=== PATIENT | female | born 1990 | race Caucasian/White ===

== ENCOUNTER 2023-10-19 07:27 | Outpatient (REF) | payer BC, SELFPAY | END 2023-10-19 07:28 | disposition home or self-care (01) | LOC: LAB 07:27 | PROVIDERS: Visit Provider Obstetrics & Gynecology | DX: L91.8 Other hypertrophic disorders of the skin (principal) | CPT/HCPCS: 88305 ==

== ENCOUNTER 2023-10-19 20:28 | Outpatient (REF) | payer BC, SELFPAY ==
[2023-10-22 21:07] LABS: Age Gdln ACOG Testing Note (.); HPV Aptima Negative (Negative); IGP, Aptima HPV, rfx 16/18,45 Note (.)
== END 2023-10-19 20:29 | disposition home or self-care (01) ==
LOC: LAB 20:28
PROVIDERS: Visit Provider Obstetrics & Gynecology
DX: L91.8 Other hypertrophic disorders of the skin (principal); Z12.4 Encounter for screening for malignant neoplasm of cervix
CPT/HCPCS: 87624; 88305; G0145

== ENCOUNTER 2024-10-24 10:11 | Outpatient (OUT) | payer BC, SELFPAY ==
--- OUTSIDE RECORDS SUMMARY | 2024-10-24 10:32 | XMS_ITS | CCD ---
Author Organization [facility] Care Team Providers Care Electronic Drafter Name Role Phone JUAN CARLOSMEDHAT CAMRON Shalonda Referring Unavailable LATOSHA KENDRICK Primary Care Unavailable GUILLAUME, DR COBB Primary Care Unavailable RL LANE Admitting Unavailable RL LANE Attending Unavailable ROLLY TEJEDA Consulting Unavailable JASKARAN ESCOBAR Consulting Unavailable JOHN DO Consulting Unavailable RL LANE Consulting Unavailable JORGE SALGADO Consulting Unavailable CONSUELO, DR BRADSHAW Admitting Unavailable CONSUELO, DR BRADSHAW Attending Unavailable GUILLAUME, DR COBB Primary Care Unavailable CONSUELO, DR BRADSHAW Consulting Unavailable MD Familia Park Attending Provider [phone] JONAS Kendrick Primary Care Provider ANKIT Evans Attending Provider JONAS Kendrick Primary Care Provider Lauryn Evans Admitting Unavailable Lauryn Evans Attending Unavailable Latosha Kendrick Primary Care Unavailable Latosha Kendrick MD Primary Care Provider [phone] AUGUSTINE CORDERO Attending Unavailable ANGY CAMARILLO Attending Unavailable ANGY CAMARILLO Attending Unavailable Medications Current Medications Medication Drug Class(es) Dates Sig (Normalized) Sig (Original) Ethinyl Estradiol / Ferrous fumarate / Norethindrone (6 sources) Estrogen Start: 08-10-2024 End: 11-08-2024 norethindrone-ethiny l estradiol (Junel FE 12/12) 1-20 MG-MCG tablet Indications: Encounter for initial prescription of contraceptive pills Take 1 tablet by mouth Daily 90 tablet 08/10/2024 11/08/2024 Active Start: 05-30-2024 Norethindrone- E.Estradiol-Iron (Misael Fe 1/20 (28)) 1 mg-20 mcg (21)/75 mg (7) tablet Active 1 TAB PO Daily May 30, 2024 12:00am fluconazole 100 mg oral tablet (5 sources) Azole Antifungal Start: 09-26-2024 take 1 tablet by mouth once daily, then take 1 tablet by mouth every week fluconazole (Diflucan) 100 MG tablet Indications: Yeast infection Take 1 tablet (100 mg) by mouth Daily Then a second tab a week later. 2 tablet 09/26/2024 Active Start: 09-26-2024 take 1 tablet by hilario th once daily, then take 1 tablet by mouth every week fluconazole (Diflucan) 100 MG tablet Indications: Yeast infection Take 1 tablet (100 mg) by mouth Daily Then a second tab a week later. 2 tablet 09/26/2024 Active Start: 09-19-2024 End: 09-26-2024 take 1 tablet by mouth once, then take 1 tablet by mouth once fluconazole (Diflucan) 150 MG tablet Indications: Yeast infection Take 1 tablet (150 mg) by mouth 1 (one) time for 1 dose This is a 1 time dose, take single tablet by mouth. 1 tablet 1 09/19/2024 09/26/2024 Discontinued Pneumatic Walking Boot (2 sources) Start: 05-30-2024 Pneumatic Walk ing Boot Active 0 .Route 1 May 30, 2024 12:00am As directed Problems Active Problems Problem Classification Problem Date Documented Da te Episodic/Chronic Gastrointestinal hemorrhage (3 sources) Rectal hemorrhage; Translations: [Hemorrhage of anus and rectum] 03-08-2019 Episodic Immunizations and screening for infectious disease (1 source) Encounter for screening for human papillomavirus (HPV); Translations: [ENC SCREENING HUMAN PAPILLOMAVIRUS] Onset: 10-15-2022 Episodic Mycoses (2 sources) Mycosis; Translations: [Candidiasis, unspecified] 09-26-2024 Episodic Other gastrointestinal disorders (3 sources) Diarrhea; Translations: [Diarrhea, unspecified] 03-08-2019 Episodic Other injuries and conditions due to external causes (2 sources) Injury of right foot; Translations: [Unspecified injury of right foot, initial encounter] 05-30-2024 Episodic Other screening for suspected conditions (not mental disorders or infectious disease) (4 sources) Encounter for screening for malignant neoplasm of cervix; Translations: [ENC SCREENING MALIG NEOPLASM CERV] Onset: 10-13-2022 Episodic Superficial injury; contusion (4 sources) Contusion of right foot; Translations: [Contusion of right foot, initial encounter] 05-30-2024 Episodic Past or Other Problems Problem Classification Problem Date Documented Da te Episodic/Chronic E Codes: Natural/environment (1 source) Overexertion from prolonged static or awkward postures, initial encounter; Translations: [OVEREXERT PROLNG STAT/AWK PST INIT] Onset: 04-08-2022 Episodic Other injuries and conditions due to external causes (1 source) Unspecified injury of right foot, initial encounter; Translations: [Unspecified injury of right foot, initial encounter] Onset: 05-30-2024 Episodic Other non-traumatic joint disorders (3 sources) Pain in left ankle and joints of left foot; Translations: [PAIN IN LEFT ANKLE] Onset: 04-05-2022 Episodic Sprains and strains (1 source) Sprain of unspecified ligament of left ankle, initial encounter; Translations: [SPRAIN UNS LIGAMENT LT ANKLE INIT] Onset: 04-08-2022 Episodic Syncope (1 source) Syncope and collapse; Translations: [SYNCOPE AND COLLAPSE] Onset: 04-08-2022 Episodic Results Test Name Value Interpretation Reference Range Facil ity XR foot RT min 3V*on 024 XR foot RT min 3V* [facility] Main [place] [address] [place] [address] XRay Report Signed Patient: Aundrea Fatima MR#: [id number] 142 : 1990 Acct:[id number] Age/Sex: 34 / F ADM Date: 05/30/24 Loc: XDUCLY Room: Type: [facility] Attending Dr: Lauryn Evans APRN Copies to: Lauryn Evans APRN Ordering Provider: Lauryn Evans APRN Date of Service: 05/30/24 XR/XR foot RT min 3V*: S99.921A - Unspecified injury of right foot, initial enco... RIGHT FOOT - 3 views CLINICAL DATA: Patient kicked a pole yesterday has pain and bruising at the distal fourth and fifth toes. COMPARISON: None AP, lateral and oblique views were obtained. There is no evidence of fracture or dislocation. There are no significant soft tissue abnormalities. XR/XR foot RT min 3V* IMPRESSION: NO ACUTE BONY INJURY. Impression dictated by: Palmira Red M.D.05/30/2024 10:39 AM Dictation Location: [place] [address] Transcribed By: GARLAND 05/30/24 1039 Dictated By: Palmira Red MD 05/30/24 1038 Signed By: 05/30/[address] [facility] HCG ( test) IA.rapi d Ql (U)Ordered By: Familia [place] on 02-02-2023 HCG ( test) Ql (U) Negative [facility] PAP ACOG PANEL 2: 30 to 65on 10-22-2022 . . Normal [facility] Comment on above: Result Comment: Perf ormed at: WB Performed By: #### [id number] #### [facility] [address] [place] [address] [address] Joe Mccrary Age Gdln ACOG Testing [facility] Comment on above: Performed By: #### [id number] #### [facility] [address] [place] [address] [address] Joe Mccrary DIAGNOSIS: Comment [facility] Comment on above: Result Comment: NEGA TIVE FOR INTRAEPITHELIAL LESION OR MALIGNANCY. Performed at: WB Performed By: #### [id number] #### [facility] [address] [place] [address] [address] Joe Mccrary HPV Aptima QNSPAP [facility] Comment on above: Result Comment: Test not performed. Liquid based PAP vial contained insufficient specimen for molecular testing; likely a consequence of insufficient cellularity in original collection. This nucleic acid amplification test detects fourteen high-risk HPV types (16,18,31,33,35,39,45,51,52,56,58,59,66,68) without differentiation. Performed at: =G Performed By: #### [id number] #### [facility] [address] [address] [address] Joe Mccrary HPV Genotype Reflex Comment [facility] Comment on above: Result Comment: Crit eria not met, HPV Genotype not performed. Performed at: WB Performed By: #### [id number] #### [facility] [address] [place] [address] Dr. Joe Mccrary Methodology: Comment Normal [facility] Comment on above: Result Comment: This liquid based ThinPrep(R) pap test was screened with the use of an image guided system. Performed at: WB Performed By: #### [id number] #### [facility] [address] [place] [address] Dr. Joe Mccrary Note: Comment Normal [facility] Comment on above: Result Comment: The Pap smear is a screening test designed to aid in the detection of premalignant and malignant conditions of the uterine cervix. It is not a diagnostic procedure and should not be used as the sole means of detecting cervical cancer. Both false-positive and false-negative reports do occur. . Performed at: WB Performed By: #### [id number] #### [facility] [address] [place] [address] Dr. Joe Mccrary Performed by: Comment Normal [facility] Comment on above: Result Comment: Claudine Arenas Senior Storage Administrator (ASCP) Performed at: WB Performed By: #### [id number] #### [facility] [address] [place] [address] Dr. Joe Mccrary Specimen adequacy: Comment Normal [facility] Comment on above: Result Comment: Sati sfactory for evaluation. Endocervical and/or squamous metaplastic cells (endocervical component) are present. Performed at: WB Performed By: #### [id number] #### [facility] [address] [place] [address] Dr. Joe Mccrary CARDIAC DOUGLAS 3-6on 2 CK [Catalytic activity/Vol] 115 U/L Normal 26-192 [facility] Comment on above: Performed By: #### C MREP ####[facility] [address] [place] [address]Dr. Joe Mccrary CK.MB [Mass/Vol] 0.75 ng/mL Normal <=3.60 [facility] Comment on above: Performed By: #### C MREP ####[facility] [address] [place] [id number]. Joe Mccrary HSTROP 6.4 pg/mL Normal 4.0-51.3 [facility] Comment on above: Result Comment: CUT- OFF POINTS HAVE BEEN ESTABLISHED BASED ON THE FOURTH UNIVERSAL DEFINITIONS OF MYOCARDIAL INFARCTION. THE UPPER REFERENCE LIMIT (URL) OF TROPONIN, DEFINED THE 99TH PERCENTILE OF cTnI DISTRIBUTION IN A REFERENCE POPULATION, HAS BEEN CONFIRMED THE DECISION THRESHOLD FOR AL DIAGNOSIS. Performed By: #### C MREP ####[facility] [address] [place] [id number]. Joe Mccrary CARDIAC DOUGLAS ADMITon 022 CK [Catalytic activity/Vol] 135 U/L Normal 26-192 [facility] Comment on above: Performed By: #### C MADM #### [facility] [address] [place] [address] [address] Joe Mccrary CK.MB [Mass/Vol] 0.78 ng/mL Normal <=3.60 [facility] Comment on above: Performed By: #### C MADM #### [facility] [address] [place] [address] [address] Joe Mccrary HSTROP 5.9 pg/mL Normal 4.0-51.3 [facility] Comment on above: Result Comment: CUT- OFF POINTS HAVE BEEN ESTABLISHED BASED ON THE FOURTH UNIVERSAL DEFINITIONS OF MYOCARDIAL INFARCTION. THE UPPER REFERENCE LIMIT (URL) OF TROPONIN, DEFINED THE 99TH PERCENTILE OF cTnI DISTRIBUTION IN A REFERENCE POPULATION, HAS BEEN CONFIRMED THE DECISION THRESHOLD FOR AL DIAGNOSIS. Performed By: #### C MADM #### [facility] [address] [address] [address] Joe Mccrary ROXANNE 47 ng/mL Normal 9-82 [facility] Comment on above: Performed By: #### C MADM #### [facility] [address] [address] [address] Joe Mccrary CBC AUTO DIFFon 04-05-2022 BASO # 0.0 103/ul Normal 0.0-0.1 [facility] Comment on above: Performed By: #### C BC ####[facility] [address] [place] [id number]. Joe Mccrary Basophils/100 WBC (Bld) 0.2 % Normal 0.2-2.0 [facility] Comment on above: Performed By: #### C BC ####[facility] [address] [place], [place] [address]Dr. Joe Mccrary EO # 0.1 103/ul Normal 0.0-0.7 [facility] Comment on above: Performed By: #### C BC ####[facility] [address] [place], [place] [address]Dr. Joe Mccrary Eosinophils/100 WBC (Bld) 0.6 % Critically low 0.9-7.0 [facility] Comment on above: Performed By: #### C BC ####[facility] [address] [place], [place] [address]Dr. Joe Mccrary Erythrocyte distribution width (RBC) [Ratio] 12.8 % Normal 11.0-15.0 [facility] Comment on above: Performed By: #### C BC ####[facility] [address] [place], [place] [address]Dr. Joe Mccrary Hematocrit (Bld) [Volume fraction] 35.8 % Critically low 36.0-48.0 [facility] Comment on above: Performed By: #### C BC ####[facility] [address] [place], [place] [address]Dr. Joe Mccrary Hemoglobin (Bld) [Mass/Vol] 11.7 g/dL Critically low 12.0-16.0 [facility] Comment on above: Performed By: #### C BC ####[facility] [address] [place], [place] [address]Dr. Joe Mccrary IG # 0.02 10e3/ul Normal 0.00-0.03 [facility] Comment on above: Performed By: #### C BC ####[facility] [address] [place], [place] [address]Dr. Yanethoxana Mccrary IG % 0.2 % Normal 0.0-0.5 [facility] Comment on above: Performed By: #### C BC ####[facility] [address] [place] [id number]. Joe Hermann LYMPH # 2.6 103/ul Normal 1.2-3.8 [facility] Comment on above: Performed By: #### C BC ####[facility] [address] [place] [id number]. Joe Mccrary Lymphocytes/100 WBC (Bld) 25.3 % Normal 20.5-60.0 [facility] Comment on above: Performed By: #### C BC ####[facility] [address] [place] [id number]. Joe Mccrary MANUAL DIFF REQ NO Normal [facility] Comment on above: Performed By: #### C BC ####[facility] [address] [place] [id number]. Joe Mccrary MCH (RBC) [Entitic mass] 30.6 pg Normal 26.7-34.0 [facility] Comment on above: Performed By: #### C BC ####[facility] [address] [place] [id number]. Joe Hermann MCHC (RBC) [Mass/Vol] 32.7 g/dL Normal 29.9-35.2 [facility] Comment on above: Performed By: #### C BC ####[facility] [address] [place] [id number]. Joe Mccrary MCV (RBC) [Entitic vol] 93.7 fL Normal 81.0-99.0 [facility] Comment on above: Performed By: #### C BC ####[facility] [address] [place] [id number]. Joe Mccrary MONO # 0.7 103/ul Normal 0.3-0.8 [facility] Comment on above: Performed By: #### C BC ####[facility] [address] [place] [id number]. Joe Mccrary Monocytes/100 WBC (Bld) 6.7 % Normal 1.7-12.0 [facility] Comment on above: Performed By: #### C BC ####[facility] [address] [place] [id number]. Joe Mccrary NEUT # 7.0 103/ul Critically high 1.4-6.5 [facility] Comment on above: Performed By: #### C BC ####[facility] [address] [place] [id number]. Joe Mccrary Neutrophils/100 WBC (Bld) 67.0 % Normal 43.0-75.0 [facility] Comment on above: Performed By: #### C BC ####[facility] [address] [place] [address]Dr. Joe Mccrary Platelet mean volume (Bld) [Entitic vol] 10.4 fL Normal 9.5-13.5 [facility] Comment on above: Performed By: #### C BC ####[facility] [address] [place] [address]Dr. Joe Mccrary PLT 257 103/ul Normal 150-450 [facility] Comment on above: Performed By: #### C BC ####[facility] [address] [place] [id number]. Joe Mccrary RBC 3.82 106/ul Critically low 4.20-5.40 [facility] Comment on above: Performed By: #### C BC ####[facility] [address] [place] [id number]. Joe Mccarry WBC 10.4 103/ul Normal 4.0-11.0 [facility] Comment on above: Performed By: #### C BC ####[facility] [address] [place], [place] [address]Dr. Joe Mccrary CT HEAD WO CONon 04-05-2022 CT HEAD WO CON EXAM: CT HEAD WO CON COMPARISON: None available. CLINICAL INFORMATION: Headache. TECHNIQUE: Axial noncontrast images were obtained through the brain and reconstructed using brain and bone algorithms with sagittal and coronal reconstructions. Dose reduction techniques were achieved by using automated exposure control and/or adjustment of mA and/or kV according to patient size and/or use of iterative reconstruction technique. FINDINGS: BRAIN: No intracranial hemorrhage. No extra-axial collection. No mass or mass effect. No midline shift. Mcclelland-white matter differentiation is preserved. CSF: Ventricles and sulci appropriate for age. Basal cisterns are patent. ORBITS: Visualized orbital structures are unremarkable. SINUSES AND MASTOID AIR CELLS: Paranasal sinuses are clear. Mastoid air cells are clear. BONES: No acute osseous abnormality. SOFT TISSUES: Unremarkable. IMPRESSION: No acute intracranial abnormality. Electronically authenticated by: JASKARAN ECSOBAR Date: 2022-04-05 20:43 Normal [facility] D-DIMERon 04-05-2022 D-DIMER 0.30 mg/L FEU Normal <=0.59 [facility] Comment on above: Performed By: #### D DIM #### [facility] [address] [place] [address] Dr. Joe Mccrary D-DIMER COMMENTS SEE BELOW Normal [facility] Comment on above: Result Comment: Incr eases in D-Dimer concentration observed with thromboembolic events can be variable due to localization, size, and age of the thrombus. Therefore, a thromboembolic event cannot be diagnosed with certainty on the basis of the reference range. D-Dimers may also be elevated for a variety of disorders including: advanced age, , coronary disease, cancer, liver disease, infection, inflammation, hematoma, DIC, trauma, post-surgery, diabetes, thrombolytic or anticoagulant therapy, stress, and generalized hospitalization. Performed By: #### D DIM #### [facility] [address] [place] [address] Dr. Joe Mccrary ER URINE PROFILEon 2 Bilirubin Ql (U) Negative Normal NEGATIVE [facility] Comment on above: Performed By: #### E JESSICA VELAZQUEZ UMICRO #### [facility] [address] [place] [address] Dr. Joe Mccrary Clarity (U) CLEAR Normal CLEAR [facility] Comment on above: Performed By: #### E JESSICA VELAZQUEZ UMICRO #### [facility] [address] [place] [address] Dr. Joe Mccrary Color (U) LT. YELLOW Normal YELLOW [facility] Comment on above: Performed By: #### E RUR, PREGU, UMICRO #### [facility] [address] [address] [address] Joe PÉREZ A micrscopic examination will be performed if indicated. Normal [facility] Comment on above: Performed By: #### E RUR, PREGU, UMICRO #### [facility] [address] [address] [address] Joe Mccrary Glucose Ql (U) Negative Normal NEGATIVE [facility] Comment on above: Performed By: #### E RUR, PREGU, UMICRO #### [facility] [address] [address] [address] Joe Mccrary Hemoglobin Ql (U) SMALL Abnormal NEGATIVE [facility] Comment on above: Performed By: #### E RUR, PREGU, UMICRO #### [facility] [address] [address] [address] Joe Mccrary Ketones Ql (U) Negative Normal NEGATIVE [facility] Comment on above: Performed By: #### E RUR, PREGU, UMICRO #### [facility] [address] [address] [address] Joe Mccrary LEUKOCYTES Negative Normal NEGATIVE [facility] Comment on above: Performed By: #### E RUR, PREGU, UMICRO #### [facility] [address] [address] [address] Joe Mccrary Nitrite Ql (U) Negative Normal NEGATIVE [facility] Comment on above: Performed By: #### E RUR, PREGU, UMICRO #### [facility] [address] [address] [address] Joe Mccrary pH (U) 5.5 [pH] Normal 5-9 [facility] Comment on above: Performed By: #### E RUR, PREGU, UMICRO #### [facility] [address] [address] [address] Joe Mccrary SPEC GRAVITY <=1.005 Abnormal 1.005-<=1.025 [facility] Comment on above: Performed By: #### E RUR, PREGU, UMICRO #### [facility] [address] [place] [address] Dr. Joe Mccrary UA PROTEIN Negative Normal NEGATIVE/ TRACE [facility] Comment on above: Performed By: #### E JESSICA VELAZQUEZ, UMICRO #### [facility] [address] [place] [address] Dr. Joe Mccrary UR MICRO IND INDICATED Normal [facility] Comment on above: Performed By: #### E JESSICA VELAZQUEZ, UMICRO #### [facility] [address] [place] [address] Dr. Joe Mccrary Urobilinogen Qn (U) 0.2 {Afshin'U}/dL Normal 0.2 - 1.0 [facility] Comment on above: Performed By: #### JESSICA HULL, UMICRO #### [facility] [address] [place] [address] Dr. Joe Mccrary URon 04-05-2022 , QUAL Negative Normal NEGATIVE [facility] Comment on above: Performed By: #### JESSICA HULL, UMICRO #### [facility] [address] [place] [address] Dr. Joe Mccrary PROF 14(COMP METB)on 022 Albumin [Mass/Vol] 4.0 g/dL Normal 3.4-5.0 [facility] Comment on above: Performed By: #### C MP #### [facility] [address] [place] [address] Dr. Joe Mccrary Albumin/Globulin [Mass ratio] 1.1 {ratio} Normal [facility] Comment on above: Performed By: #### C MP #### [facility] [address] [place] [address] Dr. Joe Mccrary ALP [Catalytic activity/Vol] 83 U/L Normal 46-116 [facility] Comment on above: Performed By: #### C MP #### [facility] [address] [place] [address] Dr. Joe Mccrary ALT [Catalytic activity/Vol] 20 U/L Normal 14-59 [facility] Comment on above: Performed By: #### C MP #### [facility] [address] [address] [address] Joe Mccrary Anion gap [Moles/Vol] 10.9 mmol/L Normal [facility] Comment on above: Performed By: #### C MP #### [facility] [address] [address] [address] Joe Mccrary AST [Catalytic activity/Vol] 16 U/L Normal 15-37 [facility] Comment on above: Performed By: #### C MP #### [facility] [address] [address] [address] Joe Mccrary Bilirubin [Mass/Vol] 0.2 mg/dL Normal 0.2-1.0 [facility] Comment on above: Performed By: #### C MP #### [facility] [address] [address] [address] Joe Mccrary Calcium [Mass/Vol] 9.3 mg/dL Normal 8.5-10.1 [facility] Comment on above: Performed By: #### C MP #### [facility] [address] [address] [address] Joe Mccrary Chloride [Moles/Vol] 104 mmol/L Normal 98-107 [facility] Comment on above: Performed By: #### C MP #### [facility] [address] [address] [address] Joe Mccrary CO2 [Moles/Vol] 25.8 mmol/L Normal 21.0-32.0 [facility] Comment on above: Performed By: #### C MP #### [facility] [address] [place] [address] Dr[address] Joe Mccrary Creatinine [Mass/Vol] 1.00 mg/dL Normal 0.55-1.02 [facility] Comment on above: Performed By: #### C MP #### [facility] [address] [address] [address] Joe Mccrary EGFR-AF HONDURAN >60 Normal >=60 [facility] Comment on above: Performed By: #### C MP #### [facility] [address] [place] [address] Dr. Joe Mccrary EGFR-NON AF HONDURAN >60 Normal >=60 [facility] Comment on above: Performed By: #### C MP #### [facility] [address] [address] [address] Joe Mccrary Globulin (S) [Mass/Vol] 3.6 g/dL Normal [facility] Comment on above: Performed By: #### C MP #### [facility] [address] [address] [address] Joe Mccrary Glucose [Mass/Vol] 112 mg/dL Critically high 74-106 [facility] Comment on above: Performed By: #### C MP #### [facility] [address] [place] [address] Dr. Joe Mccrary Potassium [Moles/Vol] 3.7 mmol/L Normal 3.5-5.1 [facility] Comment on above: Performed By: #### C MP #### [facility] [address] [place] [address] Dr. Joe Mccrary Protein [Mass/Vol] 7.6 g/dL Normal 6.4-8.2 [facility] Comment on above: Performed By: #### C MP #### [facility] [address] [place] [address] Dr. Joe Mccrary Sodium [Moles/Vol] 137 mmol/L Normal 136-145 [facility] Comment on above: Performed By: #### C MP #### [facility] [address] [place] [address] Dr. Joe Mccrary Urea nitrogen [Mass/Vol] 15.0 mg/dL Normal 7.0-18.0 [facility] Comment on above: Performed By: #### C MP #### [facility] [address] [place] [address] Dr. Joe Mccrary Urea nitrogen/Creatinin e [Mass ratio] 15.0 mg/mg Normal [facility] Comment on above: Performed By: #### C MP #### [facility] [address] [place] [address] Dr. Joe Mccrary URINE MICROSCOPIC ONLYon 05- 14-2022 BACTERIA NONE SEEN Normal NONE SEEN [facility] Comment on above: Performed By: #### E RUR, PREGU, UMICRO #### [facility] [address] [address] [address] Joe Mccrary Bacteria identified Cx Nom (U) NOT INDICATED Normal [facility] Comment on above: Performed By: #### E RUR, PREGU, UMICRO #### [facility] [address] [address] [address] Joe Mccrary CAST NONE SEEN Normal NONE SEEN [facility] Comment on above: Performed By: #### E RUR, PREGU, UMICRO #### [facility] [address] [place] [address] Dr. Joe Mccrary Crystals LM Nom (Urine sed) NONE SEEN Normal NONE SEEN [facility] Comment on above: Performed By: #### E RUR, PREGU, UMICRO #### [facility] [address] [place] [address] Dr. Joe Mccrary Epithelial cells LM Ql (Urine sed) RARE Normal NONE SEEN /RARE [facility] Comment on above: Performed By: #### Aruna RUR PREGU, UMICRO #### [facility] [address] [address] [address] Joe Mccrary MUCOUS NONE SEEN Normal NONE SEEN [facility] Comment on above: Performed By: #### Aruna RUR, PREGU, UMICRO #### [facility] [address] [place] [address] Dr. Joe Mccrary RBC 0-2 Normal 0-2 [facility] Comment on above: Performed By: #### E RUR, PREGU, UMICRO #### [facility] [address] [place] [address] Dr. Joe Mccrary WBC 0-2 Abnormal NONE SEEN [facility] Comment on above: Performed By: #### E RUR, PREGU, UMICRO #### [facility] [address] [place] [address] Dr. Joe Mccrary XR ANKLE LT MIN 3 Von 2021 XR ANKLE LT MIN 3 V EXAM: XR ANKLE LT MIN 3 V HISTORY: Pain COMPARISON: None. TECHNIQUE: Frontal, lateral, oblique views of the left ankle. FINDINGS: Mineralization: Within normal limits. Bones: No acute fractures or dislocations. Ankle mortise intact. Joints: Normal joint spacing. No effusion. Soft Tissues: Swelling about the anterior tibiotalar articulation. IMPRESSION: No acute osseous abnormality. Electronically authenticated by: JORGE SALGADO Date: 2022-04-05 19:53 Normal [facility] Vital Signs Date Time Vital Sign Value Performing Clinician Facility 09-26-2024 10:47-0500 Body height 157.5 cm Angy Marlin PA Work Phone: [facility] 09-26-2024 10:47-0500 Body mass index (BMI) [Ratio] 29.45 kg/m2 Angy Marlin PA Work Phone: [facility] 09-26-2024 10:47-0500 Body weight 73.03 kg Angy Marlin PA Work Phone: [facility] 09-26-2024 10:47-0500 Diastolic blood pressure 82 mm[Hg] Angy Marlin PA Work Phone: [facility] 09-26-2024 10:47-0500 Systolic blood pressure 116 mm[Hg] Angy Alamo PA Work Phone: [facility] 05-30-2024 09:46-0400 Body height 160.02 cm PA-C Latosha Pascual Work Phone: [facility] 05-30-2024 09:46-0400 Body mass index (BMI) [Ratio] 29.7 kg/m2 PA-C Latosha Pascual Work Phone: [facility] 05-30-2024 09:46-0400 Body temperature 100 [degF] PA-C Latosha Pascual Work Phone: [facility] 05-30-2024 09:46-0400 Body weight 76.2 kg PA-C Latosha Pascual Work Phone: [facility] 05-30-2024 09:46-0400 Heart rate 59 /min PA-C Latosha Pascual Work Phone: [facility] 05-30-2024 09:46-0400 Respiratory rate 18 /min PA-C Latosha Pascual Work Phone: [facility] 05-30-2024 09:46-0400 SaO2% (BldA) [Mass fraction] 99 % PA-C Latosha Pascual Work Phone: [facility] 02-02-2023 10:00-0400 Diastolic blood pressure 77 mm[Hg] PA-C Latosha Pascual Work Phone: [facility] 02-02-2023 10:00-0400 Heart rate 65 /min PA-C Latosha Pascual Work Phone: [facility] 02-02-2023 10:00-0400 Respiratory rate 16 /min PA-C Latosha Pascual Work Phone: [facility] 02-02-2023 10:00-0400 SaO2% (BldA) [Mass fraction] 100 % PA-C Latosha Pasucal Work Phone: [facility] 02-02-2023 10:00-0400 Systolic blood pressure 112 mm[Hg] PA-C Latohsa Pascual Work Phone: [facility] 02-02-2023 06:47-0400 Body height 157.48 cm PA-C Latosha Pascual Work Phone: [facility] 02-02-2023 06:47-0400 Body temperature 98 [degF] PA-C Latosha Pascual Work Phone: [facility] 02-02-2023 06:47-0400 Body weight 73.93 kg PA-C Latosha Pascual Work Phone: [facility] Encounters Encounter Date Encounter Type Care Provider Facility Start: 10-24-2024 End: 10-24-2024 Bamboo flowsheet Augustine Consuelo DO Work Phone: [facility] Start: 10-24-2024 End: 10-24-2024 Bamboo flowsheet Augustine Cordero DO Work Phone: [facility] Start: 09-26-2024 End: 09-26-2024 Bamboo flowsheet Angy Camarillo PA Work Phone: [facility] Start: 09-26-2024 End: 09-26-2024 Bamboo flowsheet Angy Camarillo PA Work Phone: [facility] Start: 09-26-2024 End: 09-26-2024 Office outpatient visit 15 minutes Angy Camarillo PA Work Phone: [facility] Comment on above: Yeast infection Start: 09-26-2024 End: 09-26-2024 ambulatory ANGY CAMARILLO Not Available Start: 06-29-2024 End: 06-29-2024 ambulatory ANGY CAMARILLO Not Available Start: 05-30-2024 End: 05-30-2024 ambulatory PA-C Latosha Pascual Work Phone: [facility] Work Phone: Start: 05-30-2024 End: 05-30-2024 Patient encounter procedure PA-C Latosha Pascual Work Phone: [facility] Work Phone: Start: 10-19-2023 End: 10-19-2023 ambulatory AUGUSTNIE CORDERO Not Available Start: 02-02-2023 End: 02-02-2023 Admission to same day surgery center PA-C Latosha Pascual Work Phone: [facility] Work Phone: Start: 02-02-2023 End: 02-02-2023 ambulatory PA-C Latosha Pascual Work Phone: [facility] Work Phone: Start: 10-13-2022 End: 10-13-[address] AUGUSTINE CORDERO Facility: Start: 04-05-2022 End: 04-06-[address] DOCTOR GALAVIZ Facility:[facility] Start: 11-18-2019 End: 11-19-2019 [facility] Procedures Date Procedure Procedure Detail Performing Clinician Start: 05-30-2024 X-ray of right foot PA- C Latosha Pascual Work Phone: Start: 02-02-2023 Colonoscopy PA-C Latosha Pascual Work Phone: Start: 10-13-2022 Microscopic observat ion [Identifier] in Cervix by Cyto stain Angy IRCHARDSON Work Phone: Plan of Treatment Date Care Activity Detail Author Start: 10-13-2027 Screening for malign ant neoplasm of cervix [facility] Start: 10-24-2024 End: 10-24-2024 Patient encounter procedure [facility] Comment on above: Arrived Start: 09-26-2024 End: 09-26-2024 Patient encounter procedure 09/26/2024 10:30 AM EST Office Visit [facility] [address] [place] [id number] Angy Camarillo PA [address] [place], [place] [address] Arrived [facility] Comment on above: Arrived Start: 07-24-2024 Influenza vaccination Influenza Vacc ine (#1) [facility] Start: 02-02-2023 [facility] Patient Education Ulcerative Col itis (DC) [facility] Work Phone: Immunizations Immunization Date Immunization Notes Care Provider Fa cility 09-04-2023 influenza virus vacc ine, unspecified formulation Angy RICHARDSON Work Phone: [facility] Payers Date Payer Category Payer Self-pay [id number] 2020 [facility] BCBS [id number] 1990 Unknown [id number] 1990 Unknown [id number] 1990 Unknown [id number] 1990 Unknown [id number] 1990 Unknown [id number] 1959 Unknown [id number] [employer] ( and others) [facility] [id number] Unknown [id number] Social History Date Type Detail Facility Start: 02-02-2023 End: 06-29-2024 Tobacco smoking status NHIS Never smoked tobacco (finding) [facility] Start: 1990 Sex Assigned At Female F [facility] Start: 06-29-2024 Tobacco use and exposure Smokeless tobacco non-user [facility] Start: 06-29-2024 End: 09-26-2024 Alcoholic beverage intake Ex-drinker (finding) [facility] Start: 06-29-2024 History of Social function [facility] Start: 06-29-2024 Tobacco use panel [facility] Start: 06-29-2024 Alcohol Comment Rarely consume [facility] Start: 1990 Sex assigned at Not on file [facility] Goals Date Patient Goal Desired Activity /State History of Present illness Narrative 09-26-2024 DEBRA Esteban - 09/26/2024 10:30 AM EST Note Date & Type Note Facility 09-26-2024 History of Presen t illness Narrative Reason for Appointment: Patient ID: Aundrea Fatima is a 34 y.o. female who presents for Contraception Patient presents today to discuss control and recurring yeast infections MEDICATIONS Current Outpatient Medications Medication Instructions fluconazole (DIFLUCAN) 100 mg, Oral, Daily, Then a second tab a week later. norethindrone-ethinyl estradiol (12/12) 1-20 MG-MCG tablet 1 tablet, Oral, Daily ALLERGIES No Known Allergies PROBLEMS Active Ambulatory Problems Diagnosis Date Noted No Active Ambulatory Problems Resolved Ambulatory Problems Diagnosis Date Noted No Resolved Ambulatory Problems Past Medical History: Diagnosis Date Abnormal uterine bleeding Increased severity of headaches Menorrhagia HISTORY PAST MEDICAL HISTORY SOCIAL HISTORY Past Medical History: Diagnosis Date Abnormal uterine bleeding Increased severity of headaches Menorrhagia Social History Tobacco Use Smoking status: Never Smokeless tobacco: Never Substance Use Topics Alcohol use: Not Currently Comment: Rarely consume Drug use: Never FAMILY HISTORY No family history on file. SURGICAL HISTORY Past Surgical History: Procedure Laterality Date SECTION, LOW TRANSVERSE REVIEW OF SYSTEMS Review of Systems: Review of Systems Constitutional: Negative. HENT: Negative. Eyes: Negative. Respiratory: Negative. Cardiovascular: Negative. Gastrointestinal: Negative. Genitourinary: Negative. Musculoskeletal: Negative. Skin: Negative. Neurological: Negative. All other systems reviewed and are negative. Hematological: Negative. Endocrine: Negative. Allergic/Immunologic: Negative. OBJECTIVE Objective: Physical Exam Constitutional: Appearance: Normal appearance. She is normal weight. HENT: Head: Normocephalic. Cardiovascular: Rate and Rhythm: Normal rate. Pulses: Normal pulses. Pulmonary: Effort: Pulmonary effort is normal. Breath sounds: Normal breath sounds. Abdominal: Palpations: Abdomen is soft. Musculoskeletal: General: Normal range of motion. Neurological: General: No focal deficit present. Mental Status: She is alert and oriented to person, place, and time. Psychiatric: Mood and Affect: Mood normal. Behavior: Behavior normal. Thought Content: Thought content normal. Judgment: Judgment normal. Vitals and nursing note reviewed. Vitals: Estimated body mass index is 29.45 kg/m as calculated from the following: Height as of this encounter: 5' 2 . Weight as of this encounter: 161 lb. BP: 116/82 No LMP recorded. (Menstrual status: Oral Contraception). ASSESSMENT & PLAN ICD-10-CM 1. Yeast infection B37.9 fluconazole (Diflucan) 100 MG tablet Patient states she has had increased yeast infections, she is debating on changing her control. We discussed use of soaps and changing to dove unscented. She has also started probiotic with yogurt as well. Pt declined cultures at this time but will do if this round of diflucan does not help. Pt also has 2 months of current contraception but discussed calling in - for her in future if she decides to change. Previously she had heavy bleeding with cramping but current medication has helped and now only has spotting. Documented by Fidelia Sher on behalf of: DEBRA Esteban documented in this encounter [facility] Healthcare Procedure note 02-02-2023 Note Date & Type Note Facility 02-02-2023 Procedure note [facility] Clinical Note 04-05-2022 Note Date & Type Note Facility 04-05-2022 Note PROCEDURE: XR CHEST 1 V, 04/05/2022 6:52 PM EDT CLINICAL INDICATIONS: Dizziness COMPARISON: None TECHNIQUE: Upright AP portable chest 1916 hours FINDINGS: Heart and mediastinum are normal. Acute consolidation, pleural effusion, or pneumothorax is not demonstrated. No acute osseous abnormality is seen. Regional soft tissues are unremarkable. IMPRESSION: 1. No acute cardiopulmonary pathology Electronically authenticated by: JOHN DO Date: 2022-04-05 20:04 [facility] Evaluation note Note Date & Type Note Facility Evaluation note No assessment information availa [facility] Work Phone: Evaluation note Note Date & Type Note Facility Evaluation note Diagnosis Onset Date Contusion of right foot including toes acute [facility] Work Phone: Evaluation note Note Date & Type Note Facility Evaluation note Diagnosis Yeast infection documented in this encounter [facility] Healthcare History and physical note Note Date & Type Note Facility History and physical note Note Date/Time February 02, 2023 9:1 4am [facility] [address] [place] [address] Gastroenterology H&P Signed Patient: Aundrea Fatima MR#: [id number] : 1990 Acct:[id number] Age/Sex: 32 / F Adm Date: 3 Loc: Room: Type: [facility] Attending Dr: Familia Park MD Copies to: Familia Park MD [facility] Pascual PAC~ Date of Service: 02/02/2023 HISTORY & PHYSICAL: Patient's history with special attention to the cardiovascular, pulmonary systems and the current problem was reviewed with the patient immediately prior to the procedure. Present medications and doses reviewed in the EMR. Allergies and pertinent laboratory tests were also reviewedat this time in the EMR. The physical examination, as below, was then performed. Indication, assessment and HPI: 32-year-old female here for colonoscopy for evaluation of rectal bleeding and abdominal pain Family history of GI malignancy? No PHYSICAL EXAMINATION Mouth and Pharynx : Moist mucus membranes, normal dentition Cardiac: Regular rate, regular rhythm Pulmonary: Clear to auscultation bilaterally, no wheezing Neurological: Alert and oriented x3, no focal deficits noted Abdomen: Abdomen soft, non-tender REVIEW OF SYSTEMS Constitutional: Denies malaise, fevers Cardiovascular: Denies chest pain, palpitations Respiratory: Denies shortness of breath, wheezing Gastrointestinal: Per HPI Genitourinary: Denies dysuria, polyuria Musculoskeletal: Denies joint swelling, joint stiffness Neurological: Denies numbness, tingling Integumentary: Denies rashes, skin lesions Endocrine: Denies fatigue, weight loss Written informed consent obtained from the patient. Risks (including but not limited to perforation, infection, bloating, bleeding, need for emergent surgeryand loss of life), benefits and alternatives explained and questions answered. The patient verbalized understanding. Based on history patient is an appropriate candidate for the procedure. Familia Park M.D. Documented By: Familia Park MD 02/02/23913 Signed By: <Electronically signed by Familia Park MD> 02/02/23913 [facility] Work Phone: Hospital Discharge instructions Note Date & Type Note Facility Hospital Discharge instructions Additional Instructions DISCHARGE INSTRUCTIONS FOR COLONOSCOPY WHAT TO EXPECT: - You may feel full, gassy or cramping after your procedure. In some cases, this may be from a few hours to a day. Walking may help relieve the discomfort. - You should begin to recover from anesthesia within 1 hour of the procedure, however may feel groggy for the next 24 hours. DO's AND DON'Ts: - Call your doctor right away if you have a hard abdomen, severe pain, are passing lots of bright red blood or clots. - Call your doctor if you develop any rashes, hives or difficulty breathing. - Let your doctor know if you have not had a bowel movement by 3 days after your procedure. - If you take 81 mg aspirin for your heart it is safe to resume this medication. - If you take other blood thinner medications your doctor will instruct you when these can safely be resumed. - Do NOT drive for 24 hours. - Do NOT operate machinery such as power tools, lawn mowers, snow blowers, sewing machines, etc. for 24 hours. - Avoid alcoholic beverages and drugs for allergies, nerves, or sleep. - Do NOT stay alone. Do NOT leave your child unattended. - Do NOT make important personal or business decisions or sign any legal documents. - Eat solid foods and drink liquids in smaller amounts than usual until normal appetite returns. If you should experience an upset stomach, liquids high in sugar content (soda, Herve-Aid, non-acid juices) are recommended. - You can resume normal activities tomorrow. FOLLOW UP & RECOMMENDATIONS: -Flexible sigmoidoscopy in 6 weeks -We will start oral mesalamine and Rowasa enema -Follow up pathology -Follow up in the office after 2 months -Follow up with PCP. -Office number [phone]. [facility] Work Phone: Summary Purpose Family History Relationship Condition Age at Onset Recorded Date/T rick father Coronary artery disease Unknown Relationship Condition Age at Onset Recorded Date/T rick father Coronary artery disease Unknown father Heart disease Unknown Unknown Advance Directives Advance Directive Response Recorded Date/ Time Advance Directives No March 03, 2 019 2:26pm Chief Complaint and Reason for Visit Chief Complaint Diverticulitis Chief Complaint right toe/foot pain w injury K29.188C - Unspecified injury of right foot, initi Reason for Visit Contusion of right f oot including toes Additional Source Comments INFORMATION SOURCE (unrecogn ized section and content) DATE CREATED AUTHOR 11/19/2019 [facility] DATE CREATED AUTHOR AUTHOR'S ORGANIZ ATION 10/23/2022 [facility] DATE CREATED AUTHOR AUTHOR'S ORGANIZ ATION 09/12/2024 [facility] DATE CREATED AUTHOR AUTHOR'S ORGANIZ ATION 09/27/2024 [facility] EPIC Care Teams (unrecognized sec tion and content) Team Status: Active Member Role Status Dates Latosha Kendrick PA-C Primary Care Provider Active Team Status: Inactive Member Role Status Dates Familia Park MD Attending Provider Active Latosha Kendrick PA-C Primary Care Provider Active Team Status: Inactive Member Role Status Dates Latosha Kendrick PA-C Primary Care Provider Active Start: May 30, 2024 End: May 30, 2024 Lauryn Evans APRN Attending Provider Active S tart: May 30, 2024 End: May 30, 2024 Team Status: Active Member Role Status Dates Lauryn Evans APRN Attending Provider Active S tart: May 30, 2024 Latosha Kendrick PA-C Primary Care Provider Active Start: May 30, 2024 Team Status: Inactive Member Role Status Dates Lauryn Evans APRN Attending Provider Active S tart: May 30, 2024 End: May 30, 2024 Latosha Kendrick PA-C Primary Care Provider Active Start: May 30, 2024 End: May 30, 2024 Electronic Drafter Relationship Specialty Start Date End Date Latosha Kendrick MD [address] [place] [address] PCP - General Physician [employer] 10/19/23 Electronic Drafter Relationship Specialty Start Date End Date Latosha Kendrick MD [address] [place], [place] [id number] PCP - General Physician [employer] 10/19/23 Electronic Drafter Relationship Specialty Start Date End Date Latosha Kendrick MD [address] [place] [id number] PCP - General Physician [employer] 10/19/23 Goals (unrecognized section and content) Goals may be documented in a n alternate sectionGoals may be documented in an alternate section Reason for Visit (unrecogniz ed section and content) Reason Comments Contraception FOR RECORDS PERTAINING TO PATIENTS WHO ARE OR HAVE BEEN ENROLLED IN A CHEMICAL DEPENDENCY/SUBSTANCEABUSE PROGRAM, SOME INFORMATION MAY BE OMITTED. This clinical summary was aggregated from multiple sources. Caution should be exercised in using it in the provision of clinical care. This summary normalizes information from multiple sources, and as a consequence, information in this document may materially change the coding, format and clinical context of patient data. In addition, data may be omitted in some cases. CLINICAL DECISIONS SHOULD BE BASED ON THE PRIMARY CLINICAL RECORDS. [employer] [facility]. provides no warranty or guarantee of the accuracy or completeness of information in this document.
[2024-10-25 05:07] LABS: HIV Ab/p24 Ag Screen Non Reactive (Non Reactive)
[2024-10-25 08:23] LABS: HBsAg Screen Negative (Negative)
[2024-10-25 12:09] LABS: Rapid Plasma Reagin, Quant Non Reactive titer (NonRea<1:1)
== END 2024-10-24 10:12 | disposition home or self-care (01) ==
LOC: LAB 10:14
PROVIDERS: Visit Provider Obstetrics & Gynecology
DX: Z01.419 Encounter for gynecological examination (general) (routine) without abnormal findings (principal); Z20.2 Contact with and (suspected) exposure to infections with a predominantly sexual mode of transmission
CPT/HCPCS: 36415; 86592; 87340; 87389; 87624; 88175

== ENCOUNTER 2024-10-24 20:33 | Outpatient (REF) | payer BC, SELFPAY ==
--- OUTSIDE RECORDS SUMMARY | 2024-10-24 20:36 | XMS_ITS | CCD ---
Author Organization [facility] Care Team Providers Care Laundry Washer Name Role Phone JUAN CARLOSMEDHAT CAMRON Shalonda [...] Consulting Unavailable MD Familia Park Attending Provider [phone] JONAS Kendrick Primary Care Provider ANKIT Evans Attending Provider JONAS Kendrick Primary Care Provider Lauryn Evans Admitting Unavailable Lauryn Evans Attending Unavailable Latosha Kendrick Primary Care Unavailable Latosha Kendrick MD Primary Care Provider [phone] AUGUSTINE CORDERO Attending Unavailable ANGY CAMARILLO Attending [...] 3V*on 024 XR foot RT min 3V* [facility] [place] [address] [place] [address] XRay Report Signed Patient: Aundrea Fatima MR#: [id number] : 1990 Acct:[id number] Age/Sex: 34 / F ADM Date: 05/30/24 Loc: XDUCLY Room: Type: [facility] Attending Dr: Lauryn Evans APRN Copies to: [...] Palmira Red M.D.05/30/2024 10:39 AM Dictation Location: [place] [address] Transcribed By: GARLAND 05/30/24 1039 Dictated By: Palmira Red MD 05/30/24 1038 Signed By: 05/30/24 1039 Normal [facility] HCG ( test) IA.rapi d Ql (U)Ordered By: Familia Park on 02-02-2023 HCG ( test) Ql (U) Negative [facility] PAP ACOG PANEL 2: 30 to 65on 10-22-2022 . . Normal [facility] Comment on above: Result Comment: Perf ormed at: WB Performed By: #### [id number] #### [facility] [address] [address] [address] Joe Mccrary Age Gdln ACOG Testing [facility] Comment on above: Performed By: #### [id number] #### [facility] [address] [address] [address] Joe Mccrary DIAGNOSIS: Comment [facility] Comment on above: Result Comment: NEGA TIVE FOR INTRAEPITHELIAL LESION OR MALIGNANCY. Performed at: WB Performed By: #### [id number] #### [facility] [address] [address] [address] Joe Mccrary HPV Aptima QNSPAP [facility] Comment on above: Result Comment: Test not performed. Liquid based PAP vial contained insufficient specimen for molecular testing; likely a consequence of insufficient cellularity in original collection. This nucleic acid amplification test detects fourteen high-risk HPV types (16,18,31,33,35,39,45,51,52,56,58,59,66,68) without differentiation. Performed at: =G Performed By: #### [id number] #### [facility] [address] [address] [address] Joe Mccrary HPV Genotype Reflex Comment [facility] Comment on above: Result Comment: Crit eria not met, HPV Genotype not performed. Performed at: WB Performed By: #### [id number] #### [facility] [address] [place] [address] Dr. Joe Mccrary Methodology: Comment Normal [facility] Comment on above: Result Comment: This liquid based ThinPrep(R) pap test was screened with the use of an image guided system. Performed at: WB Performed By: #### [id number] #### [facility] [address] [place] [address] Dr. Joe Mccrary Note: Comment Normal [facility] Comment on above: Result Comment: The Pap smear is a screening test designed to aid in the detection of premalignant and malignant conditions of the uterine cervix. It is not a diagnostic procedure and should not be used as the sole means of detecting cervical cancer. Both false-positive and false-negative reports do occur. . Performed at: WB Performed By: #### [id number] #### [facility] [address] [place] [address] Dr. Joe Mccrary Performed by: Comment Normal [facility] Comment on above: Result Comment: Claudine Arenas Edging Supervisor (ASCP) Performed at: WB Performed By: #### [id number] #### [facility] [address] [place] [address] Dr. Joe Mccrary Specimen adequacy: Comment Normal [facility] Comment on above: Result Comment: Sati sfactory for evaluation. Endocervical and/or squamous metaplastic cells (endocervical component) are present. Performed at: WB Performed By: #### [id number] #### [facility] [address] [place] [address] Dr. Joe Mccrary CARDIAC DOUGLAS 3-6on 2 CK [Catalytic activity/Vol] 115 U/L Normal 26-192 [facility] Comment on above: Performed By: #### C MREP ####[facility] [address] [place] [address]Dr. Joe Mccrary CK.MB [Mass/Vol] 0.75 ng/mL Normal <=3.60 [facility] Comment on above: Performed By: #### C MREP ####[facility] [address] [place] [address]Dr. Joe Mccrary HSTROP 6.4 pg/mL Normal 4.0-51.3 [facility] Comment on above: Result Comment: CUT- OFF POINTS HAVE BEEN ESTABLISHED BASED ON THE FOURTH UNIVERSAL DEFINITIONS OF MYOCARDIAL INFARCTION. THE UPPER REFERENCE LIMIT (URL) OF TROPONIN, DEFINED THE 99TH PERCENTILE OF cTnI DISTRIBUTION IN A REFERENCE POPULATION, HAS BEEN CONFIRMED THE DECISION THRESHOLD FOR SC DIAGNOSIS. Performed By: #### C MREP ####[facility] [address] [place] [id number]. Joe Mccrary CARDIAC DOUGLAS ADMITon 022 CK [Catalytic activity/Vol] 135 U/L Normal 26-192 [facility] Comment on above: Performed By: #### C MADM #### [facility] [address] [address] [address] Joe Mccrary CK.MB [Mass/Vol] 0.78 ng/mL Normal <=3.60 [facility] Comment on above: Performed By: #### C MADM #### [facility] [address] [address] [address] Joe Mccrary HSTROP 5.9 pg/mL Normal 4.0-51.3 [facility] Comment on above: Result Comment: CUT- OFF POINTS HAVE BEEN ESTABLISHED BASED ON THE FOURTH UNIVERSAL DEFINITIONS OF MYOCARDIAL INFARCTION. THE UPPER REFERENCE LIMIT (URL) OF TROPONIN, DEFINED THE 99TH PERCENTILE OF cTnI DISTRIBUTION IN A REFERENCE POPULATION, HAS BEEN CONFIRMED THE DECISION THRESHOLD FOR SC DIAGNOSIS. Performed By: #### C MADM #### [facility] [address] [address] [address] Joe Mccrary ROXANNE 47 ng/mL Normal 9-82 [facility] Comment on above: Performed By: #### C MADM #### [facility] [address] [address] [address] Joe Mccrary CBC AUTO DIFFon 04-05-2022 BASO # 0.0 103/ul Normal 0.0-0.1 [facility] Comment on above: Performed By: #### C BC ####[facility] [address] [place] [id number]. Joe Mccrary Basophils/100 WBC (Bld) 0.2 % Normal 0.2-2.0 [facility] Comment on above: Performed By: #### C BC ####[facility] [address] [place], [place] [address]Dr. Joe Mccrary EO # 0.1 103/ul Normal 0.0-0.7 [facility] Comment on above: Performed By: #### C BC ####[facility] [address] [place], [place] [address]Dr. Joe Mccrary Eosinophils/100 WBC (Bld) 0.6 % Critically low 0.9-7.0 [facility] Comment on above: Performed By: #### C BC ####[facility] [address] [place], [place] [address]Dr. Joe Mccrary Erythrocyte distribution width (RBC) [Ratio] 12.8 % Normal 11.0-15.0 [facility] Comment on above: Performed By: #### C BC ####[facility] [address] [place], [place] [address]Dr. Joe Mccrary Hematocrit (Bld) [Volume fraction] 35.8 % Critically low 36.0-48.0 [facility] Comment on above: Performed By: #### C BC ####[facility] [address] [place], [place] [address]Dr. Joe Mccrary Hemoglobin (Bld) [Mass/Vol] 11.7 g/dL Critically low 12.0-16.0 [facility] Comment on above: Performed By: #### C BC ####[facility] [address] [place], [place] [address]Dr. Joe Mccrary IG # 0.02 10e3/ul Normal 0.00-0.03 [facility] Comment on above: Performed By: #### C BC ####[facility] [address] [place], [place] [address]Dr. Yanethoxana Mccrary IG % 0.2 % Normal 0.0-0.5 [facility] Comment on above: Performed By: #### C BC ####[facility] [address] [place] [address]Dr. Joe Hermann LYMPH # 2.6 103/ul Normal 1.2-3.8 [facility] Comment on above: Performed By: #### C BC ####[facility] [address] [place] [address]Dr. Joe Mccrary Lymphocytes/100 WBC (Bld) 25.3 % Normal 20.5-60.0 [facility] Comment on above: Performed By: #### C BC ####[facility] [address] [place] [id number]. Joe Mccrary MANUAL DIFF REQ NO Normal [facility] Comment on above: Performed By: #### C BC ####[facility] [address] [place] [id number]. Joe Mccrary MCH (RBC) [Entitic mass] 30.6 pg Normal 26.7-34.0 [facility] Comment on above: Performed By: #### C BC ####[facility] [address] [place] [address]Dr. Joe Hermann MCHC (RBC) [Mass/Vol] 32.7 g/dL Normal 29.9-35.2 [facility] Comment on above: Performed By: #### C BC ####[facility] [address] [place] [id number]. Joe Mccrary MCV (RBC) [Entitic vol] 93.7 fL Normal 81.0-99.0 [facility] Comment on above: Performed By: #### C BC ####[facility] [address] [place] [id number]. Joe Mccrary MONO # 0.7 103/ul Normal 0.3-0.8 [facility] Comment on above: Performed By: #### C BC ####[facility] [address] [place] [address]Dr. Joe Mccrary Monocytes/100 WBC (Bld) 6.7 % Normal 1.7-12.0 [facility] Comment on above: Performed By: #### C BC ####[facility] [address] [place] [id number]. Joe Mccrary NEUT # 7.0 103/ul Critically high 1.4-6.5 [facility] Comment on above: Performed By: #### C BC ####[facility] [address] [place] [id number]. Joe Mccrary Neutrophils/100 WBC (Bld) 67.0 % Normal 43.0-75.0 [facility] Comment on above: Performed By: #### C BC ####[facility] [address] [place] [address]Dr. Joe Mccrary Platelet mean volume (Bld) [Entitic vol] 10.4 fL Normal 9.5-13.5 [facility] Comment on above: Performed By: #### C BC ####[facility] [address] [place] [address]Dr. Joe Mccrary PLT 257 103/ul Normal 150-450 [facility] Comment on above: Performed By: #### C BC ####[facility] [address] [place] [id number]. Joe Mccrary RBC 3.82 106/ul Critically low 4.20-5.40 [facility] Comment on above: Performed By: #### C BC ####[facility] [address] [place] [id number]. Joe Mccrary WBC 10.4 103/ul Normal 4.0-11.0 [facility] Comment on above: Performed By: #### C BC ####[facility] [address] [place], [place] [address]Dr. Joe Mccrary CT HEAD WO CONon 04-05-2022 [...] acute intracranial abnormality. Electronically authenticated by: JASKARAN ESCOBAR Date: 2022-04-05 20:43 Normal [facility] D-DIMERon 04-05-2022 D-DIMER 0.30 mg/L FEU Normal <=0.59 [facility] Comment on above: Performed By: #### D DIM #### [facility] [address] [place] [address] Dr. Joe Mccrary D-DIMER COMMENTS SEE BELOW Normal [facility] Comment on above: Result Comment: Incr eases [...] hospitalization. Performed By: #### D DIM #### [facility] [address] [place] [address] Dr. Joe Mccrary ER URINE PROFILEon 2 Bilirubin Ql (U) Negative Normal NEGATIVE [facility] Comment on above: Performed By: #### E JESSICA VELAZQUEZ UMICRO #### [facility] [address] [place] [address] Dr. Joe Mccrary Clarity (U) CLEAR Normal CLEAR [facility] Comment on above: Performed By: #### E JESSICA VELAZQUEZ UMICRO #### [facility] [address] [place] [address] Dr. Joe Mccrary Color (U) LT. YELLOW Normal YELLOW [facility] Comment on above: Performed By: #### E RUR, PREGU, UMICRO #### [facility] [address] [address] [address] Joe PÉREZ A micrscopic examination will be performed if indicated. Normal [facility] Comment on above: Performed By: #### E RUR, PREGU, UMICRO #### [facility] [address] [address] [address] Joe Mccrary Glucose Ql (U) Negative Normal NEGATIVE [facility] Comment on above: Performed By: #### E RUR, PREGU, UMICRO #### [facility] [address] [address] [address] Joe Mccrary Hemoglobin Ql (U) SMALL Abnormal NEGATIVE [facility] Comment on above: Performed By: #### E RUR, PREGU, UMICRO #### [facility] [address] [address] [address] Joe Mccrary Ketones Ql (U) Negative Normal NEGATIVE [facility] Comment on above: Performed By: #### E RUR, PREGU, UMICRO #### [facility] [address] [address] [address] Joe Mccrary LEUKOCYTES Negative Normal NEGATIVE [facility] Comment on above: Performed By: #### E RUR, PREGU, UMICRO #### [facility] [address] [address] [address] Joe Mccrary Nitrite Ql (U) Negative Normal NEGATIVE [facility] Comment on above: Performed By: #### E RUR, PREGU, UMICRO #### [facility] [address] [address] [address] Joe Mccrary pH (U) 5.5 [pH] Normal 5-9 [facility] Comment on above: Performed By: #### E RUR, PREGU, UMICRO #### [facility] [address] [address] [address] Joe Mccrary SPEC GRAVITY <=1.005 Abnormal 1.005-<=1.025 [facility] Comment on above: Performed By: #### E RUR, PREGU, UMICRO #### [facility] [address] [place] [address] Dr. Joe Mccrary UA PROTEIN Negative Normal NEGATIVE/ TRACE [facility] Comment on above: Performed By: #### E JESSICA VELAZQUEZ, UMICRO #### [facility] [address] [place] [address] Dr. Joe Mccrary UR MICRO IND INDICATED Normal [facility] Comment on above: Performed By: #### E JESSICA VELAZQUEZ, UMICRO #### [facility] [address] [place] [address] Dr. Joe Mccrary Urobilinogen Qn (U) 0.2 {Afshin'U}/dL Normal 0.2 - 1.0 [facility] Comment on above: Performed By: #### JESSICA HULL, UMICRO #### [facility] [address] [place] [address] Dr. Joe Mccrary URon 04-05-2022 , QUAL Negative Normal NEGATIVE [facility] Comment on above: Performed By: #### JESSICA HULL, UMICRO #### [facility] [address] [place] [address] Dr. Joe Mccrary PROF 14(COMP METB)on 022 Albumin [Mass/Vol] 4.0 g/dL Normal 3.4-5.0 [facility] Comment on above: Performed By: #### C MP #### [facility] [address] [place] [address] Dr. Joe Mccrary Albumin/Globulin [Mass ratio] 1.1 {ratio} Normal [facility] Comment on above: Performed By: #### C MP #### [facility] [address] [place] [address] Dr. Joe Mccrary ALP [Catalytic activity/Vol] 83 U/L Normal 46-116 [facility] Comment on above: Performed By: #### C MP #### [facility] [address] [place] [address] Dr. Joe Mccrary ALT [Catalytic activity/Vol] 20 U/L Normal 14-59 [facility] Comment on above: Performed By: #### C MP #### [facility] [address] [address] [address] Joe Mccrary Anion gap [Moles/Vol] 10.9 mmol/L Normal [facility] Comment on above: Performed By: #### C MP #### [facility] [address] [address] [address] Joe Mccrary AST [Catalytic activity/Vol] 16 U/L Normal 15-37 [facility] Comment on above: Performed By: #### C MP #### [facility] [address] [address] [address] Joe Mccrary Bilirubin [Mass/Vol] 0.2 mg/dL Normal 0.2-1.0 [facility] Comment on above: Performed By: #### C MP #### [facility] [address] [address] [address] Joe Mccrary Calcium [Mass/Vol] 9.3 mg/dL Normal 8.5-10.1 [facility] Comment on above: Performed By: #### C MP #### [facility] [address] [address] [address] Joe Mccrary Chloride [Moles/Vol] 104 mmol/L Normal 98-107 [facility] Comment on above: Performed By: #### C MP #### [facility] [address] [address] [address] Joe Mccrary CO2 [Moles/Vol] 25.8 mmol/L Normal 21.0-32.0 [facility] Comment on above: Performed By: #### C MP #### [facility] [address] [address] [address] Joe Mccrary Creatinine [Mass/Vol] 1.00 mg/dL Normal 0.55-1.02 [facility] Comment on above: Performed By: #### C MP #### [facility] [address] [address] [address] Joe Mccrary EGFR-AF ITALIAN >60 Normal >=60 [facility] Comment on above: Performed By: #### C MP #### [facility] [address] [place] [address] Dr. Joe Mccrary EGFR-NON AF ITALIAN >60 Normal >=60 [facility] Comment on above: Performed By: #### C MP #### [facility] [address] [address] [address] Joe Mccrary Globulin (S) [Mass/Vol] 3.6 g/dL Normal [facility] Comment on above: Performed By: #### C MP #### [facility] [address] [address] [address] Joe Mccrary Glucose [Mass/Vol] 112 mg/dL Critically high 74-106 [facility] Comment on above: Performed By: #### C MP #### [facility] [address] [place] [address] Dr. Joe Mccrary Potassium [Moles/Vol] 3.7 mmol/L Normal 3.5-5.1 [facility] Comment on above: Performed By: #### C MP #### [facility] [address] [place] [address] Dr. Joe Mccrary Protein [Mass/Vol] 7.6 g/dL Normal 6.4-8.2 [facility] Comment on above: Performed By: #### C MP #### [facility] [address] [place] [address] Dr. Joe Mccrary Sodium [Moles/Vol] 137 mmol/L Normal 136-145 [facility] Comment on above: Performed By: #### C MP #### [facility] [address] [place] [address] Dr. Joe Mccrary Urea nitrogen [Mass/Vol] 15.0 mg/dL Normal 7.0-18.0 [facility] Comment on above: Performed By: #### C MP #### [facility] [address] [place] [address] Dr. Joe Mccrary Urea nitrogen/Creatinin e [Mass ratio] 15.0 mg/mg Normal [facility] Comment on above: Performed By: #### C MP #### [facility] [address] [place] [address] Dr. Joe Mccrary URINE MICROSCOPIC ONLYon 05- 14-2022 BACTERIA NONE SEEN Normal NONE SEEN [facility] Comment on above: Performed By: #### E RUR, PREGU, UMICRO #### [facility] [address] [address] [address] Joe Mccrary Bacteria identified Cx Nom (U) NOT INDICATED Normal [facility] Comment on above: Performed By: #### E RUR, PREGU, UMICRO #### [facility] [address] [address] [address] Joe Mccrary CAST NONE SEEN Normal NONE SEEN [facility] Comment on above: Performed By: #### E RUR, PREGU, UMICRO #### [facility] [address] [place] [address] Dr. Joe Mccrary Crystals LM Nom (Urine sed) NONE SEEN Normal NONE SEEN [facility] Comment on above: Performed By: #### E RUR, PREGU, UMICRO #### [facility] [address] [place] [address] Dr. Joe Mccrary Epithelial cells LM Ql (Urine sed) RARE Normal NONE SEEN /RARE [facility] Comment on above: Performed By: #### Aruna RUR PREGU, UMICRO #### [facility] [address] [address] [address] Joe Mccrary MUCOUS NONE SEEN Normal NONE SEEN [facility] Comment on above: Performed By: #### Aruna RUR, PREGU, UMICRO #### [facility] [address] [place] [address] Dr. Joe Mccrary RBC 0-2 Normal 0-2 [facility] Comment on above: Performed By: #### E RUR, PREGU, UMICRO #### [facility] [address] [place] [address] Dr. Joe Mccrary WBC 0-2 Abnormal NONE SEEN [facility] Comment on above: Performed By: #### E RUR, PREGU, UMICRO #### [facility] [address] [place] [address] Dr. Joe Mccrary XR ANKLE LT MIN [...] by: JORGE SALGADO Date: 2022-04-05 19:53 Normal [facility] Vital Signs Date Time Vital Sign Value Performing Clinician Facility 09-26-2024 10:47-0500 Body height 157.5 cm Angy Marlin PA Work Phone: [facility] 09-26-2024 10:47-0500 Body mass index (BMI) [Ratio] 29.45 kg/m2 Angy Marlin PA Work Phone: [facility] 09-26-2024 10:47-0500 Body weight 73.03 kg Angy Marlin PA Work Phone: [facility] 09-26-2024 10:47-0500 Diastolic blood pressure 82 mm[Hg] Angy Marlin PA Work Phone: [facility] 09-26-2024 10:47-0500 Systolic blood pressure 116 mm[Hg] Angy [place] PA Work Phone: [facility] 05-30-2024 09:46-0400 Body height 160.02 cm PA-C Latosha Pascual Work Phone: [facility] 05-30-2024 09:46-0400 Body mass index (BMI) [Ratio] 29.7 kg/m2 PA-C Latosha Pascual Work Phone: [facility] 05-30-2024 09:46-0400 Body temperature 100 [degF] PA-C Latosha Pascual Work Phone: [facility] 05-30-2024 09:46-0400 Body weight 76.2 kg PA-C Latosha Pascual Work Phone: [facility] 05-30-2024 09:46-0400 Heart rate 59 /min PA-C Latosha Pascual Work Phone: [facility] 05-30-2024 09:46-0400 Respiratory rate 18 /min PA-C Latosha Pascual Work Phone: [facility] 05-30-2024 09:46-0400 SaO2% (BldA) [Mass fraction] 99 % PA-C Latosha Pascual Work Phone: [facility] 02-02-2023 10:00-0400 Diastolic blood pressure 77 mm[Hg] PA-C Latosha Pascual Work Phone: [facility] 02-02-2023 10:00-0400 Heart rate 65 /min PA-C Latosha Pascual Work Phone: [facility] 02-02-2023 10:00-0400 Respiratory rate 16 /min PA-C Latosha Pascual Work Phone: [facility] 02-02-2023 10:00-0400 SaO2% (BldA) [Mass fraction] 100 % PA-C Latosha Pascual Work Phone: [facility] 02-02-2023 10:00-0400 Systolic blood pressure 112 mm[Hg] PA-C Latosha Pascual Work Phone: [facility] 02-02-2023 06:47-0400 Body height 157.48 cm PA-C Latosha Pascual Work Phone: [facility] 02-02-2023 06:47-0400 Body temperature 98 [degF] PA-C Latosha Pascual Work Phone: [facility] 02-02-2023 06:47-0400 Body weight 73.93 kg PA-C Latosha Pascual Work Phone: [facility] Encounters Encounter Date Encounter Type Care Provider [...] 15 minutes Angy Camarillo PA Work Phone: [facility] Comment on above: Yeast infection Start: 09-26-2024 End: 09-26-2024 ambulatory ANGY CAMARILLO Not Available Start: 06-29-2024 End: 06-29-2024 ambulatory ANGY CAMARILLO Not Available Start: 05-30-2024 End: 05-30-2024 ambulatory PA-C Latosha Pascual Work Phone: [facility] Work Phone: Start: 05-30-2024 End: 05-30-2024 Patient encounter procedure PA-C Latosha Pascual Work Phone: [facility] Work Phone: Start: 10-19-2023 End: 10-19-2023 ambulatory AUGUSTINE CORDERO Not Available Start: 02-02-2023 End: 02-02-2023 Admission to same day surgery center PA-C Latosha Pascual Work Phone: [facility] Work Phone: Start: 02-02-2023 End: 02-02-2023 ambulatory PA-C Latosha Pascual Work Phone: [facility] Work Phone: Start: 10-13-2022 End: 10-13-[address] AUGUSTINE CORDERO Facility: Start: 04-05-2022 End: 04-06-[address] DOCTOR GALAVIZ Facility:[facility] Start: 11-18-2019 End: 11-19-2019 Patient encounter procedure [facility] Procedures Date Procedure Procedure Detail Performing Clinician Start: 05-30-2024 X-ray of right foot PA- C Latosha Pascual Work Phone: Start: 02-02-2023 Colonoscopy PA-C Latosha Pascual Work Phone: Start: 10-13-2022 Microscopic observat ion [Identifier] in Cervix by Cyto stain Angy RICHARDSON Work Phone: Plan of Treatment Date Care Activity Detail Author Start: 10-13-2027 Screening for malign ant neoplasm of cervix [facility] Start: 10-24-2024 End: 10-24-2024 Patient encounter procedure [facility] Comment on above: Arrived Start: 09-26-2024 End: 09-26-2024 Patient encounter procedure 09/26/2024 10:30 AM EST Office Visit [facility] [address] [place] [id number] Angy Camarillo PA [address] [place], [place] [address] Arrived [facility] Comment on above: Arrived Start: 07-24-2024 Influenza vaccination Influenza Vacc ine (#1) [facility] Start: 02-02-[address] [facility] Patient Education Ulcerative Col itis (DC) [facility] Work Phone: Immunizations Immunization Date Immunization Notes Care Provider Fa cility 09-04-2023 influenza virus vacc ine, unspecified formulation Angy RICHARDSON Work Phone: [facility] Payers Date Payer Category Payer Self-pay [id number] 2020 [facility] BCBS [id number] 1990 Unknown [id number] 1990 Unknown [id number] 1990 Unknown [id number] 1990 Unknown [id number] 1990 Unknown [id number] 1959 Unknown [id number] [employer] ( and others) [facility] [id number] Unknown [id number] Social History Date Type Detail Facility Start: 02-02-2023 End: 06-29-2024 Tobacco smoking status NHIS Never smoked tobacco (finding) [facility] Start: 1990 Sex Assigned At Female [facility] Start: 06-29-2024 Tobacco use and exposure [...] of: DEBRA Esteban documented in this encounter [facility] Procedure note 02-02-2023 Note Date & Type Note Facility 02-02-2023 Procedure note [facility] Clinical Note 04-05-2022 Note Date & [...] authenticated by: JOHN DO Date: 2022-04-05 20:04 [facility] Evaluation note Note Date & Type Note Facility Evaluation note No assessment information availa [facility] Work Phone: Evaluation note Note Date & Type Note Facility Evaluation note Diagnosis Onset Date Contusion of right foot including toes acute [facility] Work Phone: Evaluation note Note Date & Type Note Facility Evaluation note Diagnosis Yeast infection documented in this encounter [facility] Healthcare History and physical note Note Date & Type Note Facility History and physical note Note Date/Time February 02, 2023 9:[address] [facility] [address] [place] [address] Gastroenterology H&P Signed Patient: Aundrea Fatima MR#: [id number] : 1990 Acct:[id number] Age/Sex: 32 / F Adm Date: 3 Loc: Room: Type: [facility] Attending Dr: Familia Park MD Copies to: Familia Park MD [facility] Pascual PAC~ Date of Service: 02/02/2023 [...] <Electronically signed by Familia Park MD> 02/02/23913 [facility] Work Phone: Hospital Discharge instructions Note [...] months -Follow up with PCP. -Office number [phone]. [facility] Work Phone: Summary Purpose Family History Relationship [...] Chief Complaint right toe/foot pain w injury B73.860X - Unspecified injury of right foot, initi Reason for Visit Contusion of right f oot including toes Additional Source Comments INFORMATION SOURCE (unrecogn ized section and content) DATE CREATED AUTHOR 11/19/2019 [facility] DATE CREATED AUTHOR AUTHOR'S ORGANIZ ATION 10/23/2022 [facility] DATE CREATED AUTHOR AUTHOR'S ORGANIZ ATION 09/12/2024 [facility] DATE CREATED AUTHOR AUTHOR'S ORGANIZ ATION 09/27/2024 [facility] EPIC Care Teams (unrecognized sec [...] May 30, 2024 End: May 30, 2024 Laundry Washer Relationship Specialty Start Date End Date Latosha Kendrick MD [address] [place] [address] PCP - General Physician Chief [employer]enger Ship Steward/Stewardess 10/19/23 Laundry Washer Relationship Specialty Start Date End Date Latosha Kendrick MD [address] [place], [place] [id number] PCP - General Physician [employer] Steward/Stewardess 10/19/23 Laundry Washer Relationship Specialty Start Date End Date Latosha Kendrick MD [address] [place] [id number] PCP - General Physician [employer] Steward/Stewardess 10/19/23 Goals (unrecognized section and content) Goals [...] BE BASED ON THE PRIMARY CLINICAL RECORDS. [employer] [facility]. provides no warranty or guarantee of the accuracy or completeness of information in this document.
== END 2024-10-24 20:34 | disposition home or self-care (01) ==
LOC: LAB 20:33
PROVIDERS: Visit Provider Obstetrics & Gynecology
DX: Z01.419 Encounter for gynecological examination (general) (routine) without abnormal findings (principal)
CPT/HCPCS: 87624; 88175